=== PATIENT | female | born 1950 ===

== ENCOUNTER 2017-08-31 14:47 | Observation (INO) | payer SELFPAY ==
[2017-08-31] MEDS ORDERED: Albuterol-Ipratrop 3 mg / 0.5 (3 ml) UD INH STA (15:27)
[2017-08-31] MEDS ORDERED: guaiFENesin DM 200 mg-20 mg/10 ml UD PO ONE (15:27)
--- NOTE | 2017-08-31 15:32 | ED PDOC ---
HPI: General Adult Time Seen by Provider: 08/31/17 15:20 Chief Complaint (Nursing): Chest Pain Chief Complaint (Provider): cough History Per: Patient, Forensic Toxicologist (daughter) History/Exam Limitations: language barrier (amharic speaking) Onset/Duration Of Symptoms: Days (1) Have you had recent travel within the past 21 days to any of the following countries: [place], [place], [place] or [place]?: Yes Current Symptoms Are (Timing): Still Present Severity: Severe Recently: Treated By A Physician (was seen at [facility]) Additional Complaint(s): pt p/w + 1-2 days onset of persistent coughing/non-productive, + chest pain/ pressure, + weakness, + generalized feeling of swelling, pt states + chills/ profuse sweating; pt denied fever, chest pain worsens with coughing, no palpitations, no abd pain, no n/v, no numbness/tingling, mild decr appetite, no urinary/bowel changes, no fall/trauma/sick contact, + just recently flew into [place] from [facility]; per daughter, pt with similar complaints in the past and was treated in her country with ? depression (pt was told these symptoms occurs when she is depressed); NO loc, no weight changes, no other complaints; pt is here for further eval. PCP: NONE Past Medical History Reviewed: Historical Data, Nursing Documentation, Vital Signs Vital Signs: Last Vital Signs Temp 99.7 F H 08/31/17 14:57 Pulse 72 08/31/17 14:57 Resp 18 08/31/17 14:57 BP 142/72 08/31/17 14:57 Pulse Ox 97 08/31/17 17:46 - Medical History PMH: Depression - Surgical History Surgical History: No Surg Hx - Family History Family History: States: Unknown Family Hx - Living Arrangements Living Arrangements: With Family - Social History Current smoker - smoking cessation education provided: No Ex-Smoker (has not smoked in the last 12 months): No Alcohol: None Drugs: Denies - Allergies Allergies/Adverse Reactions: Allergies Allergy/AdvReac Type Severity Reaction Status Date / Time pollen extracts Allergy ITCHING Verified 08/31/17 14:54 Review of Systems ROS Statement: Except As Marked, All Systems Reviewed And Found Negative Constitutional: Positive for: Chills, Sweats, Weakness. Negative for: Malaise, Weight loss Eyes: Negative for: Pain ENT: Negative for: Ear Pain, Nose Congestion Cardiovascular: Positive for: Chest Pain. Negative for: Palpitations, Paroxysmal Noc. Dyspnea, Light Headedness Respiratory: Positive for: Cough, Shortness of Breath, SOB with Exertion, Pleuritic Pain. Negative for: Wheezing Gastrointestinal: Negative for: Nausea, Vomiting, Abdominal Pain Genitourinary Female: Negative for: Dysuria, Frequency, Incontinence, Hematuria , Vaginal Discharge, Vaginal Bleeding Musculoskeletal: Negative for: Neck Pain, Back Pain Skin: Negative for: Rash Neurological: Positive for: Weakness. Negative for: Altered Mental Status, Headache, Dizziness Psych: Negative for: Anxiety, Depression, Psychosis Physical Exam - Reviewed Nursing Documentation Reviewed: Yes Vital Signs Reviewed: Yes (WNL) - Physical Exam Comments: General: alert/awake, GCS = 15, oriented x 3, resting in bed, uncomfortable, cooperative, interactive; NAD; + active dry coughing is noted Head: NC/AT EYE: PERRLA, EOMI, sclera anicteric, no nystagmus, no photophobia; visual field intact b/l Facial: WNL Oral: uvula/tongue are midline, no exudate/lesions, no drooling/stridor, no dysphonia; intact dentitions; moist oral mucosa NECK: intact ROM, no midline tenderness, no nuchal rigidity, no meningeal signs ; no step off Chest: CTA b/l, no w/r/r; no tachypenia, no accessory muscle use noted; coarse breath sounds noted bibasiliar Cardiac: +S1, +S2, no m/r/r, no tachycardia Abdominal: +BS, soft/nd/nt, well nourished patient; no masses/rebound/guarding/ rigidity; no linder's sign, no mcburney's point tenderness Extremities: intact ROM, strength 5/5 grossly intact in all limbs, neurovasc intact b/l; + ambulatory; reflex +2/2; faint swelling noted to b/l ankles, no pitting edema noted b/l, no taqueria's sign b/l BACK: no step off, no midline tenderness, NO crepitus, no gross deformities noted; Intact ROM SKIN: cap refill < 1 sec, no ulcerations, no petechiae, no rashes NEURO: CNII-XII WNL, no facial asymmetries, no slurr speech, oriented x 3 NIH stroke scale ~ 0 Psych: normal insight, normal affect; follows command with ease - Laboratory Results Result Diagrams: 08/31/17 16:13 08/31/17 16:13 - ECG ECG: Positive for: Interpreted By Me, Viewed By Me Interpretation Of ECG: NSR at 75 bpm, normal axis, no ectopy, qs in leads III, no st-t changes, NORMAL EKG; O2 Sat by Pulse Oximetry: 97 Pulse Ox Interpretation: Normal - Radiology X-Ray: Viewed By Me, Read By Radiologist - Progress ED Course And Treament: Time: 16:16 HISTORY: COMPARISON: No prior. TECHNIQUE: Chest PA and lateral FINDINGS: LINES AND TUBES: None. LUNG AND PLEURA: The lungs are well inflated. There is bibasilar atelectasis/scarring. No focal consolidation HEART AND MEDIASTINUM: The heart is not enlarged. The hilar and mediastinal contours are within normal limits. SKELETAL STRUCTURES: The bony structures are within normal limits for the patient's age. VISUALIZED UPPER ABDOMEN: Normal. OTHER FINDINGS: None. IMPRESSION: No active pulmonary disease. 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, made aware, agrees with admission Re-evaluation Time: 18:09 Condition: Improved - Physician Consult Information Time Consulting Physican Contacted: 18:00 Physician Contacted: Aleksandar Queen Nebulizer Treatments/Peak Flow - Duonebs Number of Bronchodilator Doses given?: 1 - Clinical Response Clinical Response: Improved Medical Decision Making Medical Decision Making: Impression: chest pain/coughing i have consider all the differential diagnosis regarding pt's chief medical complaints/clinical findings, including but are not limited to: chest pain/ coughing/travel A/P: coughing/chest pain/travel - labs - acs eval - r/o infectious - supportive care - observe/reevaluation Disposition - Clinical Impression Clinical Impression: Chest pain with minimal risk of acute coronary syndrome, Shortness of breath, Coughing, Weakness - Patient ED Disposition Is Patient to be Admitted: Yes Counseled Patient/Family Regarding: Studies Performed, Diagnosis, Need For Followup, Rx Given - Disposition Disposition Time: 18:00 Condition: STABLE Instructions: Weakness (ED) Forms: Ton[employer] (Salvadorean)
[2017-08-31] MEDS ORDERED: Azithromycin 500 MG in Sodium Chloride 0.9% 250 ML IVPB STA (15:38)
[2017-08-31 16:19] LABS: BASO % 0.6 % (0.0-2.0); EOS # 0.1 K/uL (0.0-0.7); EOS % 1.5 % (0.0-4.0); HEMOGLOBIN 13.9 g/dL (12.0-16.0); LYMPH # 1.9 K/uL (1.0-4.3); LYMPH % 35.7 % (20.0-40.0); MEAN CELL VOLUME 86.2 fl (81.0-99.0); MEAN CORPUSCULAR HEMOGLOBIN 30.1 pg (27.0-31.0); MEAN CORPUSCULAR HGB CONC 34.9 g/dL (33.0-37.0); MEAN PLATELET VOLUME 8.1 fl (7.2-11.7); MONO # 0.4 K/uL (0.0-0.8); MONO % 6.9 % (0.0-10.0); NEUT % 55.3 % (50.0-75.0); RBC 4.6 Mil/uL (3.80-5.20); RED CELL DISTRIBUTION WIDTH 13.1 % (11.5-14.5); WHITE BLOOD COUNT 5.4 K/uL (4.8-10.8)
[2017-08-31 16:31] LABS: PARTIAL THROMBOPLASTIN TIME 30.1 Seconds (25.6-37.1); PROTHROMBIN TIME 10.7 Seconds (9.8-13.1)
[2017-08-31 16:33] LABS: ALB/GLOB RATIO 1.1 (1.0-2.1); ALBUMIN 3.8 g/dL (3.5-5.0); ALT/SGPT 39 U/L (9-52); AST/SGOT 30 U/L (14-36); BLOOD UREA NITROGEN 12 mg/dl (7-17); CALCIUM 8.9 mg/dL (8.4-10.2); GFR AFRICAN-AMERICAN > 60; GFR NON-AFRICAN AMERICAN > 60; LIPASE 66 U/L (23-300); SQUAMOUS EPITHIAL 1 /hpf (0-5); URINE BILIRUBIN NEGATIVE (NEGATIVE); URINE BLOOD SMALL (NEGATIVE); URINE CLARITY CLEAR (Clear); URINE COLOR YELLOW (YELLOW); URINE GLUCOSE (UA) NEG (Normal); URINE LEUKOCYTE ESTERASE NEG Leu/uL (Negative); URINE PROTEIN NEGATIVE (NEGATIVE)
[2017-08-31 16:43] LABS: B-TYPE NATRIURETIC PEPTIDE 234 pg/ml (0-900)
[2017-08-31] MEDS ORDERED: cefTRIAXone (Rocephin) 1 gm Inj ONE (16:50)
[2017-08-31] MEDS ORDERED: guaiFENesin 100 mg/5 ml Syrup UD ONE (16:51)
[2017-08-31] MEDS ORDERED: Albuterol-Ipratrop 3 mg / 0.5 (3 ml) UD ONE (16:51)
--- NOTE | 2017-08-31 17:32 | RAD ---
HISTORY: COMPARISON: No prior. TECHNIQUE: Chest PA and lateral FINDINGS: LINES AND TUBES: None. LUNG AND PLEURA: The lungs are well inflated. There is bibasilar atelectasis/scarring. No focal consolidation HEART AND MEDIASTINUM: The heart is not enlarged. The hilar and mediastinal contours are within normal limits. SKELETAL STRUCTURES: The bony structures are within normal limits for the patient's age. VISUALIZED UPPER ABDOMEN: Normal. OTHER FINDINGS: None. IMPRESSION: No active pulmonary disease.
[2017-08-31] MEDS ORDERED: Potassium Chloride 20 mEq ER Tab PO ONE ×2 (18:09→18:14)
[2017-08-31] MEDS ORDERED: Azithromycin 500 MG IV IVPB ONE (18:14)
[2017-08-31] MEDS ORDERED: Albuterol-Ipratrop 3 mg / 0.5 (3 ml) UD INH PRN (18:33)
--- NOTE | 2017-08-31 18:48 | CP.PCM.HP ---
History of Present Illness - History of Present Illness History of Present Illness: Chest pain This is a 67 yo female with pmh asthma, came from [facility] visiting one month ago , living with family, who presented with 2 days of chills, cold sweats, occasional dry cough, and left sided nonradiating constant chest pressure, worse with exertion. Denies any n/v/d, abdominal pain, numbness, or tingling. In the ED, the patient was worked up and found to have borderline hypokalemia of 3.5, however rest of labwork was within normal limits. There is no leukocytosis. The patient recieved duoneb tx which improved her coughing. CXR is normal without acute cardiopulmonary abnormalities. The patient is being placed on telemetry/observation for chest pain/ ACS evaluation and rule out. Present on Admission - Present on Admission Any Indicators Present on Admission: No History of DVT/PE: No History of Uncontrolled Diabetes: No Review of Systems - Hematologic/Lymphatic Additional comments: A 12 point review of systems was conducted and found to be negative other than what was mentioned in the HPI. Past Patient History - Infectious Disease Hx of Infectious Diseases: None - Past Medical History & Family History Past Medical History?: Yes Past Family History: Reviewed and not pertinent (Denies heart problems, [place], diabetes in first degree relatives.) - Past Social History Alcohol: None Drugs: Denies - PSYCHIATRIC Hx Depression: Yes Meds Allergies/Adverse Reactions: Allergies Allergy/AdvReac Type Severity Reaction Status Date / Time pollen extracts Allergy ITCHING Verified 08/31/17 14:54 Physical Exam - Additional Findings Additional findings: Physical exam: Constitutional- cooperative, awake, alert Head- NCAT, PERRL Eye- PERRL, EOMI ENT- normal exam, MMM. Neck- normal inspection, supple, no JVD Respiratory- CTAB, no wheezes rales rhonchi Cardiovascular- RRR, +S1, +S2 no MRG GI/Abdominal- normal bowel sounds, soft, no mass, no hsm Skin- warm, dry Extremities Exam- normal capillary refill, normal inspection Neurological Exam- alert, awake, oriented Psych- normal mood, normal affect Results - Vital Signs Recent Vital Signs: Last Vital Signs Temp 99.7 F H 08/31/17 14:57 Pulse 72 08/31/17 14:57 Resp 18 08/31/17 14:57 BP 142/72 08/31/17 14:57 Pulse Ox 97 08/31/17 18:12 - Labs Result Diagrams: 08/31/17 16:13 08/31/17 16:13 Labs: Laboratory Results - last 24 hr 08/31/17 08/31/17 08/31/17 16:13 16:13 16:13 WBC 5.4 RBC 4.60 Hgb 13.9 Hct 39.7 MCV 86.2 MCH 30.1 MCHC 34.9 RDW 13.1 Plt Count 209 MPV 8.1 Neut % (Auto) 55.3 Lymph % (Auto) 35.7 [place] % (Auto) 6.9 Eos % (Auto) 1.5 Baso % (Auto) 0.6 Neut # (Auto) 3.0 Lymph # (Auto) 1.9 [place] # (Auto) 0.4 Eos # (Auto) 0.1 Baso # (Auto) 0.0 PT 10.7 INR 1.0 APTT 30.1 Sodium 143 Potassium 3.5 L Chloride 103 Carbon Dioxide 26 Anion Gap 18 BUN 12 Creatinine 0.5 L Est GFR ( Amer) > 60 Est GFR (Non-Af Amer) > 60 Random Glucose 137 H Calcium 8.9 Total Bilirubin 0.4 AST 30 ALT 39 Alkaline Phosphatase 121 Troponin I < 0.0120 NT-Pro-B Natriuret Pep 234 Total Protein 7.2 Albumin 3.8 Globulin 3.5 Albumin/Globulin Ratio 1.1 Lipase 66 Urine Color Urine Clarity Urine pH Ur Specific [place] Urine Protein Urine Glucose (UA) Urine Ketones Urine Blood Urine Nitrate Urine Bilirubin Urine Urobilinogen Ur Leukocyte Esterase Urine RBC (Auto) Urine Microscopic WBC Ur Squamous Epith Cells Influenza Typ A,B (EIA) 08/31/17 08/31/17 16:13 16:13 WBC RBC Hgb Hct MCV MCH MCHC RDW Plt Count MPV Neut % (Auto) Lymph % (Auto) [place] % (Auto) Eos % (Auto) Baso % (Auto) Neut # (Auto) Lymph # (Auto) [place] # (Auto) Eos # (Auto) Baso # (Auto) PT INR APTT Sodium Potassium Chloride Carbon Dioxide Anion Gap BUN Creatinine Est GFR ( Amer) Est GFR (Non-Af Amer) Random Glucose Calcium Total Bilirubin AST ALT Alkaline Phosphatase Troponin I NT-Pro-B Natriuret Pep Total Protein Albumin Globulin Albumin/Globulin Ratio Lipase Urine Color Yellow Urine Clarity Clear Urine pH 6.0 Ur Specific [place] 1.024 Urine Protein Negative Urine Glucose (UA) Neg Urine Ketones Negative Urine Blood Small Urine Nitrate Negative Urine Bilirubin Negative Urine Urobilinogen 2.0 H Ur Leukocyte Esterase Neg Urine RBC (Auto) 13 H Urine Microscopic WBC 3 Ur Squamous Epith Cells 1 Influenza Typ A,B (EIA) Negative for flu a/b Assessment & Plan - Assessment and Plan (Free Text) Plan: ASSESSMENT/PLAN This is a 67 yo female with pmh asthma, came from [facility] visiting one month ago , living with family, who presented with 2 days of chills, cold sweats, occasional dry cough, and left sided nonradiating constant chest pressure, worse with exertion. Denies any n/v/d, abdominal pain, numbness, or tingling. In the ED, the patient was worked up and found to have borderline hypokalemia of 3.5, however rest of labwork was within normal limits. There is no leukocytosis. The patient recieved duoneb tx which improved her coughing. CXR is normal without acute cardiopulmonary abnormalities. The patient is being placed on telemetry/observation for chest pain/ ACS evaluation and rule out. 1) Chest pain, possible ACS - Place on telemetry/observation - Troponin cycling - EKG in AM - Lipid profile - consider cardiology consultation if elevated trop or EKG changes 2) Asthma- chronic, appears controlled - Duoneb PRN 3) Depression - continue home medication
[2017-09-01 05:36] LABS: HEMOGLOBIN 13.7 g/dL (12.0-16.0); MEAN CELL VOLUME 87.1 fl (81.0-99.0); MEAN CORPUSCULAR HEMOGLOBIN 29.8 pg (27.0-31.0); MEAN CORPUSCULAR HGB CONC 34.2 g/dL (33.0-37.0); RBC 4.62 Mil/uL (3.80-5.20); RED CELL DISTRIBUTION WIDTH 12.9 % (11.5-14.5); WHITE BLOOD COUNT 5.8 K/uL (4.8-10.8)
[2017-09-01 05:54] LABS: LDL CHOLESTEROL 100 mg/dL (0-129)
[2017-09-01] MEDS ORDERED: Pneumococcal 23-Valent Vaccine IM ONE (06:00)
[2017-09-01 06:10] LABS: BLOOD UREA NITROGEN 16 mg/dl (7-17); CALCIUM 8.8 mg/dL (8.4-10.2); GFR AFRICAN-AMERICAN > 60; GFR NON-AFRICAN AMERICAN > 60; HDL CHOLESTEROL 29 MG/DL (30-70)
[2017-09-01 08:04] VITALS: TEMP 98.1
--- NOTE | 2017-09-01 08:36 | CARD ---
APPROVED REPORT EKG Measurement Heart [id number] <Conclusion> Normal sinus rhythm Normal ECG
--- NOTE | 2017-09-01 08:41 | CARD ---
APPROVED REPORT EKG Measurement Heart [id number] ID [id number] <Conclusion> Normal sinus rhythm Normal ECG
[2017-09-01] MEDS ORDERED: Azithromycin 500 MG in Sodium Chloride 0.9% 250 ML IVPB SCH (09:00)
[2017-09-01] MEDS ORDERED: Fluticasone-Salmeterol 250-50mcg Diskus IH SCH (11:45)
[2017-09-01] MEDS ORDERED: Albuterol HFA 90 mcg/actuation (8 g) INH PRN (11:45)
--- NOTE | 2017-09-01 12:01 | CP.PCM.DIS ---
Provider - Provider Date of Admission: 08/31/17 18:06 Attending physician: Edis Queen DO Time Spent in preparation of Discharge (in minutes): 35 Diagnosis - Discharge Diagnosis (1) Chest pain Status: Acute (2) Asthma exacerbation, mild Status: Acute (3) Acute bronchitis Status: Acute Hospital Course - Lab Results Lab Results: Most Recent Lab Values WBC 5.8 K/uL (4.8-10.8) 09/01/17 04:20 RBC 4.62 Mil/uL (3.80-5.20) 09/01/17 04:20 Hgb 13.7 g/dL (12.0-16.0) 09/01/17 04:20 Hct 40.2 % (34.0-47.0) 09/01/17 04:20 MCV 87.1 fl (81.0-99.0) 09/01/17 04:20 MCH 29.8 pg (27.0-31.0) 09/01/17 04:20 MCHC 34.2 g/dL (33.0-37.0) 09/01/17 04:20 RDW 12.9 % (11.5-14.5) 09/01/17 04:20 Plt Count 204 K/uL (130-400) 09/01/17 04:20 MPV 8.1 fl (7.2-11.7) 08/31/17 16:13 Neut % (Auto) 55.3 % (50.0-75.0) 08/31/17 16:13 Lymph % (Auto) 35.7 % (20.0-40.0) 08/31/17 16:13 [place] % (Auto) 6.9 % (0.0-10.0) 08/31/17 16:13 Eos % (Auto) 1.5 % (0.0-4.0) 08/31/17 16:13 Baso % (Auto) 0.6 % (0.0-2.0) 08/31/17 16:13 Neut # (Auto) 3.0 K/uL (1.8-7.0) 08/31/17 16:13 Lymph # (Auto) 1.9 K/uL (1.0-4.3) 08/31/17 16:13 [place] # (Auto) 0.4 K/uL (0.0-0.8) 08/31/17 16:13 Eos # (Auto) 0.1 K/uL (0.0-0.7) 08/31/17 16:13 Baso # (Auto) 0.0 K/uL (0.0-0.2) 08/31/17 16:13 PT 10.7 Seconds (9.8-13.1) 08/31/17 16:13 INR 1.0 (0.9-1.2) 08/31/17 16:13 APTT 30.1 Seconds (25.6-37.1) 08/31/17 16:13 Sodium 143 mmol/l (132-148) 09/01/17 04:20 Potassium 3.6 MMOL/L (3.6-5.0) 09/01/17 04:20 Chloride 104 mmol/L (98-107) 09/01/17 04:20 Carbon Dioxide 26 mmol/L (22-30) 09/01/17 04:20 Anion Gap 17 (10-20) 09/01/17 04:20 BUN 16 mg/dl (7-17) 09/01/17 04:20 Creatinine 0.6 mg/dl (0.7-1.2) L 09/01/17 04:20 Est GFR ( Amer) > 60 09/01/17 04:20 Est GFR (Non-Af Amer) > 60 09/01/17 04:20 Random Glucose 97 mg/dL (65-105) 09/01/17 04:20 Calcium 8.8 mg/dL (8.4-10.2) 09/01/17 04:20 Total Bilirubin 0.4 mg/dl (0.2-1.3) 08/31/17 16:13 AST 30 U/L (14-36) 08/31/17 16:13 ALT 39 U/L (9-52) 08/31/17 16:13 Alkaline Phosphatase 121 U/L (38-126) 08/31/17 16:13 Troponin I < 0.0120 ng/mL (0.00-0.120) 09/01/17 10:45 NT-Pro-B Natriuret Pep 234 pg/ml (0-900) 08/31/17 16:13 Total Protein 7.2 G/DL (6.3-8.2) 08/31/17 16:13 Albumin 3.8 g/dL (3.5-5.0) 08/31/17 16:13 Globulin 3.5 gm/dL (2.2-3.9) 08/31/17 16:13 Albumin/Globulin Ratio 1.1 (1.0-2.1) 08/31/17 16:13 Triglycerides 465 mg/DL (0-149) H 09/01/17 04:20 Cholesterol 211 mg/dL (0-199) H 09/01/17 04:20 LDL Cholesterol Direct 100 mg/dL (0-129) 09/01/17 04:20 HDL Cholesterol 29 MG/DL (30-70) L 09/01/17 04:20 Lipase 66 U/L (23-300) 08/31/17 16:13 Urine Color Yellow (YELLOW) 08/31/17 16:13 Urine Clarity Clear (Clear) 08/31/17 16:13 Urine pH 6.0 (5.0-8.0) 08/31/17 16:13 Ur Specific [place] 1.024 (1.003-1.030) 08/31/17 16:13 Urine Protein Negative mg/dL (NEGATIVE) 08/31/17 16:13 Urine Glucose (UA) Neg mg/dL (Normal) 08/31/17 16:13 Urine Ketones Negative mg/dL (NEGATIVE) 08/31/17 16:13 Urine Blood Small (NEGATIVE) 08/31/17 16:13 Urine Nitrate Negative (NEGATIVE) 08/31/17 16:13 Urine Bilirubin Negative (NEGATIVE) 08/31/17 16:13 Urine Urobilinogen 2.0 mg/dL (0.2-1.0) H 08/31/17 16:13 Ur Leukocyte Esterase Neg [place]/uL (Negative) 08/31/17 16:13 Urine RBC (Auto) 13 /hpf (0-3) H 08/31/17 16:13 Urine Microscopic WBC 3 /hpf (0-5) 08/31/17 16:13 Ur Squamous Epith Cells 1 /hpf (0-5) 08/31/17 16:13 Influenza Typ A,B (EIA) Negative for flu a/b (NEGATIVE) 08/31/17 16:13 - Hospital Course Hospital Course: This is a 67 yo female with pmh asthma, came from [facility] visiting one month ago , living with family, who presented with 2 days of chills, cold sweats, occasional dry cough, and left sided nonradiating constant chest pressure, worse with exertion. Denies any n/v/d, abdominal pain, numbness, or tingling. In the ED, the patient was worked up and found to have borderline hypokalemia of 3.5, however rest of labwork was within normal limits. There is no leukocytosis however noted to be wheezing. The patient received duoneb tx which improved her coughing. CXR is normal without acute cardiopulmonary abnormalities. Rpt CXR : ? Atelectasis , cannot r/o PNA . She was started on IV Ceftriaxone and Azithromycin. Symptoms improved. 1) Chest pain, ACS ruled out pain probably sec to musculoskeletal pain - Placed on telemetry/observation - Troponin x 3 negative - EKG : no change - Lipid profile : elevated Triglycerides 2) Asthma, mild intermitted, mild exacerbation -started Advair BID and Albuterol HFA prn - Duoneb PRN - empirically started on IV Ceftriaxone and Azithro- - CXR : negative, Rpt CXR : Atelectasis cannot r/o superimposed PNA -Pt has mild wheezing and cough- will d/c home on PO levaquin x 5 more days 3) Depression - continue home medication- Zoloft 4. DVT proph - Heparin Discharge Exam - Head Exam Head Exam: ATRAUMATIC, NORMAL INSPECTION, NORMOCEPHALIC - Eye Exam Eye Exam: Normal appearance, PERRL Pupil Exam: NORMAL ACCOMODATION - ENT Exam ENT Exam: Mucous Membranes Moist, Normal External Ear Exam - Neck Exam Neck exam: Full Rom - Respiratory Exam Respiratory Exam: Wheezes, NORMAL BREATHING PATTERN. absent: Respiratory Distress - Cardiovascular Exam Cardiovascular Exam: REGULAR RHYTHM, +S1, +S2 - GI/Abdominal Exam GI & Abdominal Exam: Normal Bowel Sounds, Soft. absent: Tenderness - Extremities Exam Extremities exam: full ROM, normal capillary refill, normal inspection, pedal pulses present - Back Exam Back exam: FULL ROM, NORMAL INSPECTION. absent: CVA tenderness (L), CVA tenderness (R), vertebral tenderness - Neurological Exam Neurological exam: Alert, CN II-XII Intact, Normal Gait, Oriented x3, Reflexes Normal - Psychiatric Exam Psychiatric exam: Normal Affect, Normal Mood - Skin Skin Exam: Dry, Normal Color, Warm Discharge Plan - Discharge Medications Prescriptions: Fenofibrate [Tricor] 48 mg PO DAILY #30 tab Levofloxacin [Levaquin] 500 mg PO DAILY #5 tablet - Follow Up Plan Condition: GOOD Disposition: HOME/ ROUTINE Instructions: Low Cholesterol, Saturated Fat, and Trans Fat Diet , Levofloxacin (Systemic), Chest Pain (DC), Weakness (ED) Additional Instructions: hacer vlaerie con baxter medico en theo semana
[2017-09-01] MEDS: Albuterol-Ipratrop 3 mg / 0.5 (3 ml) UD INH SCH ×2 (12:21→15:32)
--- NOTE | 2017-09-01 13:26 | RAD ---
HISTORY: COMPARISON: 08/31/2017. TECHNIQUE: Chest PA and lateral FINDINGS: LINES AND TUBES: None. LUNG AND PLEURA: The lungs are well inflated. There is confluent airspace disease in the left lower lobe. HEART AND MEDIASTINUM: The heart is not enlarged. The hilar and mediastinal contours are within normal limits. SKELETAL STRUCTURES: The bony structures are within normal limits for the patient's age. VISUALIZED UPPER ABDOMEN: Normal. OTHER FINDINGS: None. IMPRESSION: Confluent airspace disease in the left lower lobe may represent subsegmental atelectasis however superimposed pneumonia cannot be excluded. Follow-up after medical management is recommended to ensure complete resolution.
[2017-09-01 15:58] VITALS: BP 125/72; PULSE 70; RESP 16; O2SAT 96
== END 2017-09-01 18:40 | disposition home or self-care (01) ==
LOC: H.ER 14:47 → H.ERHOLD 18:06 → H.TEL 21:32
PROVIDERS: ADMIT Internal Medicine; ATTEND Internal Medicine
DX: R07.9 Chest pain, unspecified (principal); J45.21 Mild intermittent asthma with (acute) exacerbation; F32.9 Major depressive disorder, single episode, unspecified; Z23 Encounter for immunization; E87.6 Hypokalemia
CPT/HCPCS: 36415; 71046; 80048; 80053; 80061; 81003; 83690; 83880; 84484; 85025; 85027; 85610; 85730; 87040; 87804; 90732; 93005; 94640; 96365; 99282; G0009; G0378; J0456; J0696; J1644; J7050